=== PATIENT | female | born 1985 | race African-American/Black ===

== ENCOUNTER 2016-10-21 09:35 | Emergency (ER) | payer MEDICARE, OTHER ==
[2016-10-21 10:23] LABS: BILIRUBIN,URINE NEGATIVE (NEG); GLUCOSE,URINE NEGATIVE (NEG); NITRITE,URINE NEGATIVE (NEG); PROTEIN,URINE NEGATIVE (NEG-TRACE); UROBILINOGEN,URINE 0.2 mg/dL (0.2 mg/dL)
[2016-10-21] MEDS ORDERED: ONDANSETRON ODT 4 MG TAB.RAPDIS. PO ONE (10:30)
[2016-10-21] MEDS ORDERED: ACETAMINOPHEN 500 MG TABLET PO ONE (10:30)
--- NOTE | 2016-10-21 10:33 | ED.ADGEN ---
Past Medical History Past Medical History: Hypertension Past Surgical History: No Surgical History Alcohol Use: Occasionally Drug Use: None Adult General Chief Complaint Chief Complaint: ABDOMINAL PAIN HPI HPI Patient is a 30 year old woman, with no significant past no history, who presents to the emergency department with a complaint of nausea, and right upper quadrant pain this morning. Patient was seen by her primary care provider yesterday, she states that she thought she might be at that time, and was experiencing some abdominal cramping. Patient states that her raise test was negative at her doctor's office, she states that her doctor did draw some blood work which is pending at this time. Patient states that she had been dressing her son this morning, when she laid down she expressed a sharp cramping pain and right upper quadrant. Pain is fully resolved at this time. She denies any injuries, any vomiting, any diarrhea, stool last bowel was yesterday and was normal. No back pain, states she has not expressed any urinary complaints, discharge or drainage from the vagina. She states she has intermittent headaches as well about which her doctor is aware. She is currently she still feels slightly nauseous, but she is not experiencing any abdominal pain at this time or other symptoms. No recent travel or surgery, no sick contacts or exposures. Review of Systems Review of Systems Constitutional: Denies fever or chills. [] Eyes: Denies change in visual acuity. [] HENT: Denies nasal congestion or sore throat. [] Respiratory: Denies cough or shortness of breath. [] Cardiovascular: Denies chest pain or edema. [] GI: Right upper quadrant abdominal pain, now resolved, nausea, no vomiting, bloody stools or diarrhea. : Denies dysuria. [] Musculoskeletal: Denies back pain or joint pain. [] Integument: Denies rash. [] Neurologic: Denies headache, focal weakness or sensory changes. [] Endocrine: Denies polyuria or polydipsia. [] Lymphatic: Denies swollen glands. [] Psychiatric: Denies depression or anxiety. [] Current Medications Current Medications Current Medications Medications (Trade) Dose Ordered Sig/Le Start Time Stop Time Status Last Admin Dose Admin Acetaminophen (Tylenol) 1,000 mg 1X ONCE 10/21/16 10:30 10/21/16 10:31 DC 10/21/16 10:28 1,000 MG Ondansetron HCl (Zofran Odt) 4 mg 1X ONCE 10/21/16 10:30 10/21/16 10:31 DC 10/21/16 10:28 4 MG Allergies Allergies Allergies Coded Allergies Type Severity Reaction Last Updated Verified No Known Drug Allergies 10/21/16 No Physical Exam Physical Exam Constitutional: Well developed, well nourished, no acute distress, non-toxic appearance. [] HENT: Normocephalic, atraumatic, bilateral external ears normal, oropharynx moist, no oral exudates, nose normal. [] Eyes: PERRLA, EOMI, conjunctiva normal, no discharge. [] Neck: Normal range of motion, no tenderness, supple, no stridor. [] Cardiovascular:Heart rate regular rhythm, no murmur, S1, S2, no rubs or gallops. [] Lungs & Thorax: Bilateral breath sounds clear to auscultation, no wheezing, rhonchi, rales. No chest or crepitus or tenderness. [] Abdomen: Bowel sounds normal, soft, no tenderness, no rebound, rigidity, no guarding, no masses, no pulsatile masses. [] Skin: Warm, dry, no erythema, no rash. [] Back: No tenderness, no CVA tenderness. [] Extremities: No tenderness, no cyanosis, no clubbing, ROM intact, no edema. Negative Homans sign. [] Neurologic: Alert and oriented X 3, normal motor function, normal sensory function, no focal deficits noted. [] Psychologic: Affect normal, judgement normal, mood normal. [] Current Patient Data Vital Signs Vital Signs Date Time Temp Pulse Resp B/P (MAP) Pulse Ox O2 Delivery O2 Flow Rate FiO2 10/21/16 11:45 90 18 134/100 (111) 100 Room Air 10/21/16 09:57 98.6 98.6 Lab Values Laboratory Tests Test 10/21/16 09:20 10/21/16 10:05 POC Urine HCG, Qualitative Hcg negative (Negative) Urine Collection Type Unknown Urine Color Yellow Urine Clarity Clear Urine pH 7.0 Urine Specific [place] 1.010 Urine Protein Negative mg/dL (NEG-TRACE) Urine Glucose (UA) Negative mg/dL (NEG) Urine Ketones (Stick) Negative mg/dL (NEG) Urine Blood Negative (NEG) Urine Nitrite Negative (NEG) Urine Bilirubin Negative (NEG) Urine Urobilinogen Dipstick 0.2 mg/dL (0.2 mg/dL) Urine Leukocyte Esterase Negative (NEG) Urine RBC 0 /HPF (0-2) Urine WBC 0 /HPF (0-4) Urine Squamous Epithelial Cells Many /LPF Urine Bacteria Few /HPF (0-FEW) Urine Mucus Slight /LPF Urine Test Negative (NEG) EKG EKG Not indicated.[] Radiology/Procedures Radiology/Procedures Not indicated. [] Course & Med Decision Making Course & Med Decision Making Pertinent Labs and Imaging studies reviewed. (See chart for details) Patient states she is experiencing mild nausea at this time, she and significant other bedside asking if patient can experience "feeling like you're when you are not actually ", as the patient seems to be experiencing type symptoms, and she currently has tried can see. Discussed with the patient that this can occur, her urine hCG is negative in the emergency department. Discussed the patient that as she is experiencing no abdominal symptoms currently, that I feel would be remiss to establish an additional workup at this time, as her primary care provider several yesterday for similar complaints, and currently has blood work and evaluation in progress. Patient was given Zofran, urinalysis obtained. On reevaluation, is nausea is resolved after receiving Zofran, patient starting by mouth fluids without issue. Urinalysis is negative for infection. Discussed again with patient that if she develops new concerning symptoms or if symptoms return that would be happy to evaluate her in the emergency department, but at this time as she is asymptomatic and is currently being evaluated by her primary care provider, I would recommend following up with her primary, and forgoing additional evaluation the ED this time. Patient is resting comfortably with family at bedside, is agreeable with this plan. We did discuss concerning symptoms that prompt return to the emergency department. Patient voiced understanding and agreement with recommendations and plan, discharged home with prescription for Zofran with plan as above. Dragon Disclaimer Dragon Disclaimer This electronic medical record was generated, in whole or in part, using a voice recognition dictation system. Departure Impression: Primary Impression: Nausea Disposition: HOME, SELF-CARE Condition: IMPROVED Scripts Ondansetron Hcl (ZOFRAN) 4 Mg Tablet 1 TAB PO Q8HRS, #12 TAB Prov: ROSAS ARIAS DO 10/21/16 ROSAS ARIAS DO Oct 21, 2016 10:33
[2016-10-21 10:38] LABS: NEG OBC UR NEG; POS OBC UR POS
[2016-10-21 10:54] LABS: BACTERIA,URINE FEW /HPF (0-FEW); RBC,URINE 0 /HPF (0-2); SQUAMOUS EPITHELIAL CELL,UR MANY /LPF; WBC,URINE 0 /HPF (0-4)
[2016-10-21 11:45] VITALS: BP 134/100
[2016-10-21] MEDS ORDERED: ONDA4TAB7 PO (12:01)
== END 2016-10-21 12:04 | disposition home or self-care (01) ==
LOC: ER 09:35
DX: R11.0 Nausea (principal); R10.11 Right upper quadrant pain; R51 Headache; I10 Essential (primary) hypertension
CPT/HCPCS: 81001; 81025; 84703; 99284; Q0162

== ENCOUNTER 2017-02-04 18:44 | Emergency (ER) | payer MEDICARE, OTHER ==
[~2017-02-04] VITALS: Ht 160 cm; Wt 95.7 kg
[~2017-02-04 18:44] MED LIST: ONDA4TAB7 PO
[2017-02-04 19:10] VITALS: BP 166/107
--- NOTE | 2017-02-04 19:38 | PHYS DOC ---
Past Medical History Past Medical History: Hypertension Past Surgical History: No Surgical History Alcohol Use: Occasionally Drug Use: None Adult General Chief Complaint Chief Complaint: BACK PAIN OR INJURY HPI HPI Patient is a 31 year old female presents to the emergency department with rest tenderness, fatigue, low back pain. She states that this has been occurring for several months. She feels that she may be . She states she is on the Mirena and does not have regular menstrual cycles. She took a home test that was negative. She has no nausea, no vomiting, no abdominal pain, no neck pain, no fever, no urinary symptoms. She denies vaginal discharge Review of Systems Review of Systems Constitutional: Denies fever or chills, complain of fatigue [] Eyes: Denies change in visual acuity, redness, or eye pain [] HENT: Denies nasal congestion or sore throat [] Respiratory: Denies cough or shortness of breath , complaining of breast tenderness[] Cardiovascular: Denies chest pain, denies lower extremity edema and denies palpitations GI: Denies abdominal pain, nausea, vomiting, bloody stools or diarrhea [] : Denies dysuria or hematuria [] Musculoskeletal: Complaining of low back pain Integument: Denies rash or skin lesions [] Neurologic: Denies headache, focal weakness or sensory changes [] Endocrine: Denies polyuria or polydipsia [] Allergies Allergies Allergies Coded Allergies Type Severity Reaction Last Updated Verified No Known Drug Allergies 10/21/16 No Physical Exam Physical Exam Constitutional: Well developed, well nourished, no acute distress, non-toxic appearance. [] HENT: Normocephalic, atraumatic, bilateral external ears normal, oropharynx moist, no oral exudates, nose normal. [] Eyes: PERRLA, EOMI, conjunctiva normal, no discharge. [] Neck: Normal range of motion, no tenderness, supple, no stridor. [] Cardiovascular:Heart rate regular rhythm, no murmur [] Lungs & Thorax: Bilateral breath sounds clear to auscultation [] Abdomen: Bowel sounds normal, soft, no tenderness, no masses, no pulsatile masses. [] Skin: Warm, dry, no erythema, no rash. [] Back: No tenderness, no CVA tenderness. [] Extremities: No tenderness, no cyanosis, no clubbing, ROM intact, no edema. [] Neurologic: Alert and oriented X 3, normal motor function, normal sensory function, no focal deficits noted. [] Psychologic: Affect normal, judgement normal, mood normal. [] Current Patient Data Vital Signs Vital Signs Date Time Temp Pulse Resp B/P (MAP) Pulse Ox O2 Delivery O2 Flow Rate FiO2 02/04/17 19:10 98.9 78 16 100 Room Air 98.9 Lab Values Laboratory Tests Test 02/04/17 19:32 POC Urine HCG, Qualitative Hcg negative (Negative) EKG EKG [] Radiology/Procedures Radiology/Procedures [] Course & Med Decision Making Course & Med Decision Making Pertinent Labs and Imaging studies reviewed. (See chart for details) [] Dragon Disclaimer Dragon Disclaimer This electronic medical record was generated, in whole or in part, using a voice recognition dictation system. Departure Departure Impression: Primary Impression: Amenorrhea, unspecified Additional Impression: Back pain Referrals: ALEAH DILLON MD (PCP) Patient Instructions: Back Pain, Adult Additional Instructions: Follow-up with your primary care provider for your chronic discomfort and lack of menstrual cycle. You may use [id number] ibuprofen as labeled and is indicated for symptom management. Problem Qualifiers Additional Impression: Back pain Back pain location: low back pain Chronicity: chronic Back pain laterality : bilateral Sciatica presence: without sciatica Qualified Codes: M54.5 - Low back pain; G89.29 - Other chronic pain AGUSTINA THAKKAR APRN Feb 04, 2017 19:38
== END 2017-02-04 20:14 | disposition home or self-care (01) ==
LOC: ER 18:44
DX: N91.2 Amenorrhea, unspecified (principal); M54.5 Low back pain; I10 Essential (primary) hypertension; G89.29 Other chronic pain
CPT/HCPCS: 81025; 99282

== ENCOUNTER 2017-06-07 04:41 | Emergency (ER) | payer MEDICARE, OTHER ==
[2017-06-07 05:05] LABS: URINE HCG POC HCG NEGATIVE (Negative)
[2017-06-07] MEDS: ONDANSETRON ODT 4 MG TAB.RAPDIS. PO ×2 (05:30)
[2017-06-07 06:04] LABS: AGAP ISTAT 21 mmol/L (6-14); BUN ISTAT 10 mg/dL (8-26); CHLORIDE ISTAT 97 mmol/L (98-110); CREATININE ISTAT 0.8 mg/dL (0.5-1.4); GLUCOSE ISTAT 99 mg/dL (70-99); HEMATOCRIT ISTAT 41 % (36-40); HEMOGLOBIN ISTAT 13.9 g/dL (12-15); ION CA ISTAT 1.04 mmol/L (1.13-1.32); POTASSIUM ISTAT 3.3 mmol/L (3.5-5.0); SODIUM ISTAT 142 mmol/L (135-145); TOT CO2 ISTAT 28 mmol/L (23-32)
== END 2017-06-07 06:20 | disposition home or self-care (01) ==
LOC: ER 04:41
DX: R11.2 Nausea with vomiting, unspecified (principal); E87.6 Hypokalemia; R19.7 Diarrhea, unspecified; I10 Essential (primary) hypertension; K21.9 Gastro-esophageal reflux disease without esophagitis
CPT/HCPCS: 36415; 80047; 81025; 85014; 85018; 99283; Q0162

== ENCOUNTER → 2017-08-03 | Outpatient (CLI) | payer MEDICARE, OTHER | END | disposition home or self-care (01) | LOC: US 15:36 | DX: N83.202 Unspecified ovarian cyst, left side (principal); I10 Essential (primary) hypertension; E87.6 Hypokalemia | CPT/HCPCS: 76830; 76856 ==

== ENCOUNTER 2018-01-21 16:04 | Emergency (ER) | payer MEDICARE, OTHER ==
[~2018-01-21] VITALS: Ht 160 cm; Wt 94.3 kg
[~2018-01-21 16:04] MED LIST changes: +LOPE2CAP88 PO
--- NOTE | 2018-01-21 16:15 | PHYS DOC ---
Past Medical History Past Medical History: Hypertension Additional Past Medical Histor: Acid Reflux Past Surgical History: Cholecystectomy, Additional Information: 2 PKS/DAY Alcohol Use: None Drug Use: None Adult General Chief Complaint Chief Complaint: ABDOMINAL PAIN HPI HPI Patient is a 32 year old female with history of hypertension who presents today complaining of moderate sharp right upper quadrant abdominal pain radiating to her flank that began 3 days ago. Patient states the pain comes and goes. Patient states the pain occasionally makes her nauseated. Denies any fever. Denies any chance she is . Denies any urgency but states she has some urinary frequency. Denies any concerns for STDs. Review of Systems Review of Systems Constitutional: Denies fever or chills [] Eyes: Denies change in visual acuity, redness, or eye pain [] HENT: Denies nasal congestion or sore throat [] Respiratory: Denies cough or shortness of breath [] Cardiovascular: No additional information not addressed in HPI [] GI: Reports right upper quadrant abdominal pain, reports nausea, denies vomiting , bloody stools or diarrhea [] : Reports right flank pain. Denies dysuria or hematuria [] Musculoskeletal: Denies back pain or joint pain [] Integument: Denies rash or skin lesions [] Neurologic: Denies headache, focal weakness or sensory changes [] All other systems were reviewed and found to be within normal limits, except as documented in this note. Current Medications Current Medications Current Medications Medications (Trade) Dose Ordered Sig/Le Start Time Stop Time Status Last Admin Dose Admin Ceftriaxone Sodium 50 ml @ 100 mls/hr 1X ONCE 01/21/18 17:00 01/21/18 17:29 DC 01/21/18 16:59 100 MLS/HR Clonidine HCl (Catapres) 0.1 mg 1X ONCE 01/21/18 16:30 01/21/18 16:31 DC Famotidine (Pepcid Vial) 20 mg 1X ONCE 01/21/18 16:30 01/21/18 16:31 DC 01/21/18 16:33 20 MG Morphine Sulfate (Morphine Sulfate) 5 mg 1X ONCE 01/21/18 16:30 01/21/18 16:31 DC 01/21/18 16:33 5 MG Ondansetron HCl (Zofran) 4 mg 1X ONCE 01/21/18 16:30 01/21/18 16:31 DC 01/21/18 16:33 4 MG Potassium Chloride (Klor-Con) 40 meq 1X ONCE 01/21/18 17:00 01/21/18 17:01 DC 01/21/18 16:58 40 MEQ Sodium Chloride 1,000 ml @ 1,000 mls/hr 1X ONCE 01/21/18 16:30 01/21/18 17:29 DC 01/21/18 16:34 1,000 MLS/HR Allergies Allergies Allergies Coded Allergies Type Severity Reaction Last Updated Verified No Known Drug Allergies 10/21/16 No Physical Exam Physical Exam Constitutional: Well developed, well nourished, no acute distress, non-toxic appearance. [] HENT: Normocephalic, atraumatic, bilateral external ears normal, oropharynx moist, no oral exudates, nose normal. [] Eyes: PERRLA, EOMI, conjunctiva normal, no discharge. [] Neck: Normal range of motion, no tenderness, supple, no stridor. [] Cardiovascular:Heart rate regular rhythm, no murmur [] Lungs & Thorax: Bilateral breath sounds clear to auscultation [] Abdomen: Old healed surgical incisions noted on the right upper quadrant consistent with laparotomy cholecystectomy. Bowel sounds normal, soft, slight RUQ tenderness, no masses, no pulsatile masses. No right lower quadrant tenderness. Negative Perrin sign, negative obturator sign, negative Rovsing sign. Skin: Warm, dry, no erythema, no rash. [] Back: No tenderness, slight right CVA tenderness. [] Extremities: No tenderness, no cyanosis, no clubbing, ROM intact, no edema. [] Neurologic: Alert and oriented X 3, normal motor function, normal sensory function, no focal deficits noted. [] Psychologic: Affect normal, judgement normal, mood normal. [] Current Patient Data Vital Signs Vital Signs Date Time Temp Pulse Resp B/P (MAP) Pulse Ox O2 Delivery O2 Flow Rate FiO2 01/21/18 17:50 78 18 132/78 (96) 99 Room Air 01/21/18 16:05 98.0 98.0 Lab Values Laboratory Tests Test 01/21/18 16:15 01/21/18 16:20 01/21/18 16:25 White Blood Count 8.0 x10^3/uL (4.0-11.0) Red Blood Count 5.10 x10^6/uL (3.50-5.40) Hemoglobin 15.2 g/dL (12.0-15.5) Hematocrit 43.6 % (36.0-47.0) Mean Corpuscular Volume 86 fL (79-100) Mean Corpuscular Hemoglobin 30 pg (25-35) Mean Corpuscular Hemoglobin Concent 35 g/dL (31-37) Red Cell Distribution Width 14.0 % (11.5-14.5) Platelet Count 298 x10^3/uL (140-400) Neutrophils (%) (Auto) 64 % (31-73) Lymphocytes (%) (Auto) 30 % (24-48) Monocytes (%) (Auto) 5 % (0-9) Eosinophils (%) (Auto) 1 % (0-3) Basophils (%) (Auto) 1 % (0-3) Neutrophils # (Auto) 5.1 x10^3uL (1.8-7.7) Lymphocytes # (Auto) 2.4 x10^3/uL (1.0-4.8) Monocytes # (Auto) 0.4 x10^3/uL (0.0-1.1) Eosinophils # (Auto) 0.1 x10^3/uL (0.0-0.7) Basophils # (Auto) 0.1 x10^3/uL (0.0-0.2) Sodium Level 141 mmol/L (136-145) Potassium Level 3.0 mmol/L (3.5-5.1) L Chloride Level 100 mmol/L (98-107) Carbon Dioxide Level 29 mmol/L (21-32) Anion Gap 12 (6-14) Blood Urea Nitrogen 11 mg/dL (7-20) Creatinine 1.1 mg/dL (0.6-1.0) H Estimated GFR (Cockcroft-Gault) 69.2 BUN/Creatinine Ratio 10 (6-20) Glucose Level 94 mg/dL (70-99) Calcium Level 9.8 mg/dL (8.5-10.1) Total Bilirubin 0.8 mg/dL (0.2-1.0) Aspartate Amino Transferase (AST) 31 U/L (15-37) Alanine Aminotransferase (ALT) 69 U/L (14-59) H Alkaline Phosphatase 129 U/L (46-116) H Total Protein 9.1 g/dL (6.4-8.2) H Albumin 4.0 g/dL (3.4-5.0) Albumin/Globulin Ratio 0.8 (1.0-1.7) L Lipase 200 U/L (73-393) Ethyl Alcohol Level < 10 mg/dL (0-10) Urine Collection Type Unknown Urine Color Yellow Urine Clarity Hazy Urine pH 7.0 Urine Specific [place] 1.020 Urine Protein >=300 mg/dL (NEG-TRACE) Urine Glucose (UA) Negative mg/dL (NEG) Urine Ketones (Stick) Negative mg/dL (NEG) Urine Blood Moderate (NEG) Urine Nitrite Positive (NEG) Urine Bilirubin Negative (NEG) Urine Urobilinogen Dipstick 0.2 mg/dL (0.2 mg/dL) Urine Leukocyte Esterase Moderate (NEG) Urine RBC 3-5 /HPF (0-2) Urine WBC 20-40 /HPF (0-4) Urine Squamous Epithelial Cells Mod /LPF Urine Bacteria Many /HPF (0-FEW) Urine Mucus Mod /LPF Urine Opiates Screen Neg (NEG) Urine Methadone Screen Neg (NEG) Urine Barbiturates Neg (NEG) Urine Phencyclidine Screen Neg (NEG) Urine Amphetamine/Methamphetamine Neg (NEG) Urine Benzodiazepines Screen Neg (NEG) Urine Cocaine Screen Neg (NEG) Urine Cannabinoids Screen Neg (NEG) Urine Ethyl Alcohol Neg (NEG) POC Urine HCG, Qualitative Hcg negative (Negative) Laboratory Tests 01/21/18 16:15 Laboratory Tests 01/21/18 16:15 EKG EKG [] Radiology/Procedures Radiology/Procedures [] Course & Med Decision Making Course & Med Decision Making Pertinent Labs and Imaging studies reviewed. (See chart for details) This is a 32-year-old female presenting to the ED today with right upper quadrant abdominal pain radiating to her flank region with the urinary frequency. Urine noted for nitrates and moderate leukocytes though urine appears contaminated considering her symptoms we will treat for UTI. Patient was given Rocephin in the ED. Discharged with cephalexin. CBC is normal, CMP with potassium of 3.0, patient was given oral potassium replacement. AST 31, ALT 69, ALK 129-history of cholecystectomy. Patient was instructed to push fluids. Follow-up with PCP in one week. Instructed to return to the ED at any point symptoms worsen. Encouraged to increase dietary potassium intake including foods like bananas. Her blood pressure was 168/100 on arrival to the ED. She has history of hypertension. Unknown if she is on medications. Blood pressure was rechecked later, it did come down to 140s/90s. Patient encouraged to follow-up with the PCP to make sure she is on blood pressure medications. Staff Physician Addendum: I was working in the ER during the course of this patient's visit. I was available for consultation as needed, but I was not directly involved in the care of this patient. Dragon Disclaimer Dragon Disclaimer This electronic medical record was generated, in whole or in part, using a voice recognition dictation system. Departure Departure Impression: Primary Impression: Urinary tract infection Additional Impressions: Hypokalemia Hypertension Disposition: 01 HOME, SELF-CARE Condition: STABLE Referrals: ALEX GRIMES [employer] ENGINEER (PCP) Follow-up in one week Patient Instructions: Hypertension, Hypokalemia-Brief, Urinary Tract Infection Additional Instructions: You were evaluated in the emergency room and noted to have urinary tract infection, we put you on antibiotics, ensure you complete them. Your potassium was slightly low. Increase your dietary potassium intake through foods like bananas. Take the prescribed medications as ordered ensuring you complete your oral antibiotics. Push fluids. Follow-up with your doctor in 1-2 weeks. Come back to the ED at any point symptoms worsen. Scripts Tramadol Hcl (ULTRAM) 50 Mg Tablet 50 MG PO Q6HRS PRN for PAIN, #30 TAB 0 Refills Prov: MALIK AMADOR APRN 01/21/18 Ondansetron (ZOFRAN ODT) 4 Mg Tab.rapdis 1 TAB SL Q8HRS, #15 TAB Prov: MALIK AMADOR APRN 01/21/18 Cephalexin (CEPHALEXIN) 500 Mg Tablet 1 TAB PO BID, #14 TAB Prov: MALIK AMADOR APRN 01/21/18 Problem Qualifiers Primary Impression: Urinary tract infection Urinary tract infection type: site unspecified Hematuria presence: without hematuria Qualified Codes: N39.0 - Urinary tract infection, site not specified Additional Impressions: Hypertension Hypertension type: unspecified Qualified Codes: I10 - Essential (primary) hypertension MALKI AMADOR APRN Jan 21, 2018 16:15 PATRICIA ALMENDAREZ MD Jan 22, 2018 12:30
[2018-01-21 16:23] LABS: BASO # 0.1 x10^3/uL (0.0-0.2); BASO % 1 % (0-3); EOS # 0.1 x10^3/uL (0.0-0.7); EOS % 1 % (0-3); HEMATOCRIT 43.6 % (36.0-47.0); HEMOGLOBIN 15.2 g/dL (12.0-15.5); LYMPH # 2.4 x10^3/uL (1.0-4.8); LYMPH % 30 % (24-48); MEAN CORPUSCULAR HEMOGLOBIN 30 pg (25-35); MEAN CORPUSCULAR HGB CONC 35 g/dL (31-37); MEAN CORPUSCULAR VOLUME 86 fL (79-100); MONO # 0.4 x10^3/uL (0.0-1.1); MONO % 5 % (0-9); NEUT # 5.1 x10^3uL (1.8-7.7); NEUT % 64 % (31-73); PLATELET COUNT 298 x10^3/uL (140-400)
[2018-01-21] MEDS ORDERED: MORPHINE SULFATE 10 MG/ML VIAL. IV ONE (16:30)
[2018-01-21] MEDS ORDERED: ONDANSETRON PF 4 MG/2 ML VIAL. IV ONE (16:30)
[2018-01-21] MEDS ORDERED: cloNIDine HCL 0.1 MG TABLET PO ONE (16:30)
[2018-01-21] MEDS ORDERED: IV NORMAL SALINE 1000ML BAG 1,000 ML IV ONE (16:30)
[2018-01-21] MEDS ORDERED: FAMOTIDINE 20 MG/2 ML VIAL IVP ONE (16:30)
[2018-01-21 16:38] LABS: BILIRUBIN,URINE NEGATIVE (NEG); COLOR,URINE YELLOW; NITRITE,URINE POSITIVE (NEG); PROTEIN,URINE >=300 mg/dL (NEG-TRACE); UROBILINOGEN,URINE 0.2 mg/dL (0.2 mg/dL)
[2018-01-21 16:42] LABS: CLARITY,URINE HAZY
[2018-01-21 16:42] LABS: ALBUMIN/GLOBULIN RATIO 0.8 (1.0-1.7); CALCIUM 9.8 mg/dL (8.5-10.1); CREATININE 1.1 mg/dL (0.6-1.0); GFR 69.2; TOTAL BILIRUBIN 0.8 mg/dL (0.2-1.0); TOTAL PROTEIN 9.1 g/dL (6.4-8.2)
[2018-01-21 16:43] LABS: BARBITURATES NEG (NEG); BENZODIAZEPINES NEG (NEG); CANNABINOIDS NEG (NEG); COCAINE NEG (NEG); METHADONE NEG (NEG); OPIATES NEG (NEG); PHENCYCLIDINE NEG (NEG)
[2018-01-21 16:46] LABS: AMPHETAMINE/METHAMPHETAMINE NEG (NEG); BACTERIA,URINE MANY /HPF (0-FEW); SQUAMOUS EPITHELIAL CELL,UR MOD /LPF; WBC,URINE 20-40 /HPF (0-4)
[2018-01-21] MEDS ORDERED: TRAM-48 PO (16:59)
[2018-01-21] MEDS ORDERED: ONDA4TAB10 SL (16:59)
[2018-01-21] MEDS ORDERED: CEPH500T PO (16:59)
[2018-01-21] MEDS ORDERED: POTASSIUM CHLORIDE 20 MEQ TABLET.ER. PO ONE (17:00)
[2018-01-21 17:50] VITALS: BP 132/78
== END 2018-01-21 17:52 | disposition home or self-care (01) ==
LOC: ER 16:04
DX: N39.0 Urinary tract infection, site not specified (principal); E87.6 Hypokalemia; I10 Essential (primary) hypertension; F17.210 Nicotine dependence, cigarettes, uncomplicated; Z90.49 Acquired absence of other specified parts of digestive tract; Z98.890 Other specified postprocedural states
CPT/HCPCS: 36415; 80053; 80307; 81001; 81025; 83690; 85025; 87086; 96365; 96375; 99285; G0480; J0690; J2270; J2405; J7030; S0028; G0479

== ENCOUNTER → 2018-02-06 | Outpatient (CLI) | payer MEDICARE, OTHER ==
[2018-01-21 17:50] VITALS: BP 132/78
[~2018-02-06] MED LIST changes: +CEPH500T PO; +ONDA4TAB10 SL; +TRAM-48 PO
--- NOTE | 2018-02-06 07:47 | RAD ---
Renal ultrasound, 02/06/2018: HISTORY: Right flank pain The right kidney measures 12.2 cm in length while the left kidney measures 11.6 cm. There is no evidence of hydronephrosis or a renal mass. The renal parenchymal echogenicity is within normal limits. Limited views of urinary bladder show no abnormality. IMPRESSION: No significant abnormality is detected. Electronically signed by: Pranav Ramirez MD (02/06/2018 7:44 AM) [facility]
== END | disposition home or self-care (01) ==
LOC: US 06:09
PROVIDERS: ATTEND Family Medicine
DX: R10.84 Generalized abdominal pain (principal)
CPT/HCPCS: 76770

== ENCOUNTER → 2018-05-11 | Outpatient (CLI) | payer MEDICARE, OTHER ==
--- NOTE | 2018-05-11 16:16 | RAD ---
Pelvic ultrasound 05/11/2018 INDICATION: Umbilical pain. COMPARISON STUDY: Pelvic ultrasound: August 03, 2017. Discussion: Ultrasound evaluation of the pelvis was performed transabdominally. Static images are submitted to PACS. The uterus measures 10.6 x 3.5 x 5.0 cm. Intrauterine device is seen in place of partially obscured the endometrium. No definitive surrounding fluid is seen. No focal uterine lesions are identified. The right ovary measures 3.4 x 2.0 x 2.6 cm. The left ovary measures 3.5 x 1.5 x 3.5 cm. Blood flow the ovaries is seen bilaterally. No significant free fluid is seen in the pelvis. IMPRESSION: Unremarkable transabdominal pelvic ultrasound. Intrauterine device in place. Electronically signed by: Kaleb Olivia MD (05/11/2018 4:12 PM) [facility] [place] [id number]
== END | disposition home or self-care (01) ==
LOC: US 15:30
PROVIDERS: ATTEND Obstetrics & Gynecology
DX: R10.84 Generalized abdominal pain (principal)
CPT/HCPCS: 76856

== ENCOUNTER → 2018-05-30 | Outpatient (CLI) | payer MEDICARE, OTHER ==
[~2018-05-30] MED LIST changes: +CONTRAST GIVEN. MC PRN; +IOHEXOL 240 MG/ML 50ML VIAL. PO ONE; +IOHEXOL 300 MG/ML 100ML VIAL. IV ONE
--- NOTE | 2018-05-30 18:35 | RAD ---
PQRS Compliance statement: One or more of the following individualized dose reduction techniques were utilized for this examination: 1. Automated exposure control. 2. Adjustment of the mA and/or kV according to patient size. 3. Use of iterative reconstruction technique. Indication:ACUTE ABD PAIN X 3 WEEKS PO CONTRAST ONLY-UNABLE TO GAIN IV ACCESS NO PREV TECHNIQUE: CT abdomen and pelvis without IV contrast with multiplanar reformats. COMPARISON: None FINDINGS: Limited evaluation of solid abdominal and pelvic organs due to lack of IV contrast. Are clear lung bases. Noncontrast appearance of the liver, spleen, pancreas, adrenals within normal limits. Status post cholecystectomy. No nephrolithiasis or hydronephrosis. No free pelvic fluid or ascites. Shotty mesenteric lymph nodes are seen with surrounding haziness of the mesenteric fat. No enlarged retroperitoneal or pelvic adenopathy. No bowel obstruction. Normal appendix. Anteverted uterus with IUD. Urinary bladder demonstrates no radiopaque stone. No pneumoperitoneum. No suspicious bony lesion. IMPRESSION: Limited evaluation of solid abdominal and pelvic organs due to lack of IV contrast. 1. Prominent mesenteric lymph nodes with surrounding haziness may be secondary to mesenteric adenitis. Electronically signed by: Celestine Bucio DO (05/30/2018 6:31 PM) [facility]
== END | disposition home or self-care (01) ==
LOC: CT 15:53
PROVIDERS: ATTEND Family Medicine
DX: R10.0 Acute abdomen (principal); Z97.5 Presence of (intrauterine) contraceptive device
CPT/HCPCS: 74176

== ENCOUNTER → 2018-06-13 | Outpatient (CLI) | payer MEDICARE, OTHER ==
[2018-06-08 16:53] VITALS: BP 151/105
[~2018-06-13] MED LIST changes: -CONTRAST GIVEN. MC PRN; -IOHEXOL 240 MG/ML 50ML VIAL. PO ONE; -IOHEXOL 300 MG/ML 100ML VIAL. IV ONE
--- NOTE | 2018-06-13 10:07 | RAD ---
DATE: 06/13/2018 EXAM: DIGITAL DIAGNOSTIC BILATERAL HISTORY: Bilateral breast pain COMPARISON: Baseline study This study was interpreted with the benefit of Computerized Aided Detection (CAD). Breast Density: HETERO The breast parenchyma is heterogenously dense, which could reduce sensitivity of mammography. Breast parenchyma level C. FINDINGS: A tiny smooth lymph node type density is projected over the posterolateral aspect of the right breast. No suspicious breast densities are seen. No microcalcifications are evident. Benign-appearing lymph node type densities are projected over the left axilla. IMPRESSION: There is no mammographic evidence of malignancy in either breast. Clinical surveillance is suggested. BI-RADS CATEGORY: 2 BENIGN FINDING(S) RECOMMENDED FOLLOW-UP: CLIN FOLLOW UP IMAGING CLINICALLY INDICATED PQRS compliance statement: Patient information was entered into a reminder system with a target due date for the next mammogram. Mammography is a sensitive method for finding small breast cancers, but it does not detect them all and is not a substitute for careful clinical examination. A negative mammogram does not negate a clinically suspicious finding and should not result in delay in biopsying a clinically suspicious abnormality. "Our facility is accredited by the [employer] Mammography Program."
== END | disposition home or self-care (01) ==
LOC: MAMMO 09:35
PROVIDERS: ATTEND Obstetrics & Gynecology
DX: N64.4 Mastodynia (principal)
CPT/HCPCS: 77066

== ENCOUNTER → 2018-07-06 | Outpatient (CLI) | payer MEDICARE, OTHER ==
[2018-06-08 16:53] VITALS: BP 151/105
[~2018-07-06] MED LIST changes: +BARIUM SULFATE 60% 355 ML SUSP PO ONE
--- NOTE | 2018-07-06 10:22 | RAD ---
Small bowel series, 2018: HISTORY: Lower abdominal pain, constipation The preliminary abdominal image demonstrates an IUD projected over the mid pelvis. There are surgical clips in the right upper quadrant compatible with a prior cholecystectomy. There is a moderate amount stool in the colon. The abdominal gas pattern is otherwise unremarkable. Serial abdominal images were obtained following oral ingestion of liquid barium. 5 fluoroscopic spot images were also recorded. 0.9 minutes of fluoroscopy time was utilized. The small bowel loops are of normal caliber with no evidence of thickening of their folds. The contrast reached the colon at 90 minutes. The terminal ileum was well visualized and shows no abnormality. IMPRESSION: No significant small bowel abnormality is detected. Electronically signed by: Pranav Ramirez MD (07/06/2018 10:19 AM) [facility]
== END | disposition home or self-care (01) ==
LOC: RAD 10:00
PROVIDERS: ATTEND Internal Medicine Gastroenterology
DX: K59.00 Constipation, unspecified (principal); Z90.49 Acquired absence of other specified parts of digestive tract
CPT/HCPCS: 74250

== ENCOUNTER → 2018-09-12 | Outpatient (CLI) | payer MEDICARE, OTHER ==
[2018-06-08 16:53] VITALS: BP 151/105
[~2018-09-12] MED LIST changes: -BARIUM SULFATE 60% 355 ML SUSP PO ONE
--- NOTE | 2018-09-12 09:44 | RAD ---
DATE: 09/12/2018 EXAM: MAMMO STEPHANIE DIAG RT, BREAST RIGHT HISTORY: Right breast lump COMPARISON: 06/13/2018 This study was interpreted with the benefit of Computerized Aided Detection (CAD). Breast Density: HETERO The breast parenchyma is heterogenously dense, which could reduce sensitivity of mammography. Breast parenchyma level C. FINDINGS: 2-D and 3-D tomosynthesis imaging was performed in CC and MLO projections. The area of reported clinical concern was in the upper inner right breast, although the patient could not currently pinpoint a lump. No new or enlarging breast densities are seen. There is an unchanged small benign-appearing lymph node type density in the posterolateral aspect of the right breast. No spiculated mass or architectural distortion is evident. No suspicious microcalcifications are seen. Right breast ultrasound, 09/12/2018: A targeted ultrasound exam of the upper inner quadrant of the right breast was performed. Normal heterogeneous fibroglandular shadows are evident no solid mass or unusual fluid collection is seen. IMPRESSION: 1. Stable right mammograms without evidence of malignancy. 2. The targeted ultrasound exam of the right breast reveals no abnormality. 3. Clinical surveillance is suggested. BI-RADS CATEGORY: 1 NEGATIVE RECOMMENDED FOLLOW-UP: CLIN FOLLOW UP IMAGING CLINICALLY INDICATED PQRS compliance statement: Patient information was entered into a reminder system with a target due date for the next mammogram. Mammography is a sensitive method for finding small breast cancers, but it does not detect them all and is not a substitute for careful clinical examination. A negative mammogram does not negate a clinically suspicious finding and should not result in delay in biopsying a clinically suspicious abnormality. "Our facility is accredited by the [employer] Mammography Program."
== END | disposition home or self-care (01) ==
LOC: US 07:48
PROVIDERS: ATTEND Family Medicine
DX: N63.10 Unspecified lump in the right breast, unspecified quadrant (principal)
CPT/HCPCS: 76641; 77065; G0279; 77061

== ENCOUNTER 2018-10-02 19:41 | Emergency (ER) | payer MEDICARE, OTHER ==
[~2018-10-02] VITALS: Ht 160 cm; Wt 93.0 kg
[2018-10-02 19:42] VITALS: BP 195/127
--- NOTE | 2018-10-02 21:04 | PHYS DOC ---
Past Medical History Past Medical History: Depression, Hypertension Additional Past Medical Histor: Acid Reflux Past Surgical History: Alcohol Use: None Drug Use: None Adult General Chief Complaint Chief Complaint: OTHER COMPLAINTS HPI HPI 32-year-old female presents to ER for request of to piercing removals 1 from left upper ear cartilage and one from left side nare. Patient is also requesting test although she has an IUD and does not have monthly cycles she feels like she could be having symptoms which include intermittent weight gain weight loss, intermittent nausea, and intermittent lower abdominal cramping. Patient is denying any symptoms currently. She reports she has taken multiple tests at home all of been negative. Patient denies urinary or vaginal symptoms. Review of Systems Review of Systems Constitutional: Denies fever or chills [] HENT: Reports nose pain at site of lt side piercing. Reports lt upper ear cartilage pain at piercing site GI: Denies vomiting. Reports intermittent lower abd cramping/nausea- denies sxs currently : Denies dysuria or hematuria. Denies vaginal sxs Musculoskeletal: Denies joint pain [] Integument: Denies rash or skin lesions [] Neurologic: Denies headache, focal weakness or sensory changes [] All other systems were reviewed and found to be within normal limits, except as documented in this note. Allergies Allergies Allergies Coded Allergies Type Severity Reaction Last Updated Verified No Known Drug Allergies 10/21/16 No Physical Exam Physical Exam Constitutional: Well developed, well nourished, no acute distress, non-toxic appearance. [] HENT: Normocephalic, atraumatic, bilateral ears normal- patient has multiple piercing sites to upper ear cartilage in bilateral ears. Patient has piercing to left upper cartilage which she has been unable to remove. Site is tender on palpation with swelling around piercing. No erythema or purulence. Oropharynx moist. Left side near piercing with swelling at site tender on palpation. No purulence or erythema. Bilateral nares are patent. No orbital swelling Eyes: Pupils equal, conjunctiva normal, no discharge. [] Neck: Normal range of motion, supple Cardiovascular:Heart rate regular Lungs & Thorax: Resp. equal/nonlabored Abdomen: Bowel sounds normal, soft, no tenderness/distention Skin: Warm, dry, no erythema, no rash. [] Back: No tenderness, no CVA tenderness. [] Extremities: ROM intact, no edema. [] Neurologic: Alert and oriented X 3, normal motor function, normal sensory function, no focal deficits noted. [] Psychologic: Affect normal, judgement normal, mood normal. [] Current Patient Data Vital Signs Vital Signs Date Time Temp Pulse Resp B/P (MAP) Pulse Ox O2 Delivery O2 Flow Rate FiO2 10/02/18 19:42 98.8 68 16 195/127 (149) 100 Room Air 98.8 Lab Values Laboratory Tests Test 10/02/18 21:08 POC Urine HCG, Qualitative Hcg negative (Negative) EKG EKG [] Radiology/Procedures Radiology/Procedures [] Course & Med Decision Making Course & Med Decision Making Pertinent Labs reviewed. (See chart for details) Patient presented to the ER with requests of assistance with removing piercings from left upper ear cartilage and left side near. Patient had both of those piercings easily removed had small amount of bleeding at sites patient tolerated well. Discussed leaving piercings out of those sites. Patient requested test although she has an IUD in place. UCG was negative and this was discussed with patient. Patient had denied any abdominal pain or nausea while in the ER. Home wound care was discussed for piercing sites. Education provided on signs and symptoms to return to ER. Discharge instructions were discussed. Patient to follow-up with primary care physician if symptoms persist or with any concerns. Dragon Disclaimer Dragon Disclaimer This electronic medical record was generated, in whole or in part, using a voice recognition dictation system. Departure Departure Impression: Primary Impression: Piercing Additional Impressions: Encounter for test Complication of left ear piercing Disposition: HOME, SELF-CARE Condition: STABLE Referrals: SUKHWINDER MORALEZ MD (PCP) Patient Instructions: Piercing Infection Additional Instructions: You were evaluated in the emergency department for removal of your pew seems from her left ear and left side of your nose. The sites do not currently infected- you are being provided with information on receiving infections for signs and symptoms to monitor for which she would need to seek medical attention for. Keep the areas clean and if signs of infection appear follow-up with your primary care physician for reevaluation. Problem Qualifiers WANDA SPANGLER APRN Oct 02, 2018 21:04
== END 2018-10-02 21:52 | disposition home or self-care (01) ==
LOC: ER 19:41
DX: H95.89 Other postprocedural complications and disorders of the ear and mastoid process, not elsewhere classified (principal); Z32.02 Encounter for pregnancy test, result negative; I10 Essential (primary) hypertension; K21.9 Gastro-esophageal reflux disease without esophagitis; Y84.8 Other medical procedures as the cause of abnormal reaction of the patient, or of later complication, without mention of misadventure at the time of the procedure
CPT/HCPCS: 81025; 99284

== ENCOUNTER 2019-01-09 16:38 | Emergency (ER) | payer MEDICARE, OTHER ==
[~2019-01-09] VITALS: Ht 160 cm; Wt 91.3 kg
[~2019-01-09 16:38] MED LIST changes: +LOPE-101 PO; -LOPE2CAP88 PO
[2019-01-09 18:07] LABS: BILIRUBIN,URINE NEGATIVE (NEG); CLARITY,URINE CLEAR; COLOR,URINE YELLOW; NITRITE,URINE NEGATIVE (NEG); PROTEIN,URINE NEGATIVE (NEG-TRACE); UROBILINOGEN,URINE 0.2 mg/dL (0.2 mg/dL)
[2019-01-09 18:16] LABS: BACTERIA,URINE FEW /HPF (0-FEW); RBC,URINE 0 /HPF (0-2); SQUAMOUS EPITHELIAL CELL,UR MANY /LPF; WBC,URINE 0 /HPF (0-4)
[2019-01-09 19:00] VITALS: BP 124/83
--- NOTE | 2019-01-09 19:13 | PHYS DOC ---
Past Medical History Past Medical History: Depression, Hypertension Additional Past Medical Histor: Acid Reflux Past Surgical History: Alcohol Use: None Drug Use: None Adult General Chief Complaint Chief Complaint: ABDOMINAL PAIN HPI HPI Patient is a 33 year old female who presents to the ED today with multiple complaints. Patient states for the last 1 month she is felt she is . She states a boom something sore as well as her abdomen felt like she is . She states she's done multiple tests which have been negative. She states she has an IUD and typically does not have menstrual cycles. She's had the IUD for 3 years. She states she is under the custody of another adult and is not allowed to remove her IUD, she states she's been trying to get with the IUD in place. She believes she could be right now. She is also complaining of high blood pressure, she states she follows up with Dr. Roca and he has her on 3 different medications. Review of Systems Review of Systems Constitutional: Denies fever or chills [] Eyes: Denies change in visual acuity, redness, or eye pain [] HENT: Denies nasal congestion or sore throat [] Respiratory: Denies cough or shortness of breath [] Cardiovascular: Reports high blood pressure. No additional information not addressed in HPI [] GI: Reports sensation she could be . Denies abdominal pain, nausea, vomiting, bloody stools or diarrhea [] : Denies dysuria or hematuria [] Musculoskeletal: Denies back pain or joint pain [] Integument: Denies rash or skin lesions [] Neurologic: Denies headache, focal weakness or sensory changes [] All other systems were reviewed and found to be within normal limits, except as documented in this note. Allergies Allergies Allergies Coded Allergies Type Severity Reaction Last Updated Verified No Known Drug Allergies 10/21/16 No Physical Exam Physical Exam Constitutional: Well developed, well nourished, no acute distress, non-toxic appearance. [] HENT: Normocephalic, atraumatic, bilateral external ears normal, oropharynx moist, no oral exudates, nose normal. [] Eyes: PERRLA, EOMI, conjunctiva normal, no discharge. [] Neck: Normal range of motion, no tenderness, supple, no stridor. [] Cardiovascular:Heart rate regular rhythm, no murmur [] Lungs & Thorax: Bilateral breath sounds clear to auscultation [] Abdomen: Bowel sounds normal, soft, no tenderness, no masses, no pulsatile masses. [] Skin: Warm, dry, no erythema, no rash. [] Back: No tenderness, no CVA tenderness. [] Extremities: No tenderness, no cyanosis, no clubbing, ROM intact, no edema. [] Neurologic: Alert and oriented X 3, normal motor function, normal sensory function, no focal deficits noted. [] Psychologic: Affect normal, judgement normal, mood normal. [] Current Patient Data Vital Signs Vital Signs Date Time Temp Pulse Resp B/P (MAP) Pulse Ox O2 Delivery O2 Flow Rate FiO2 01/09/19 17:15 99.1 66 18 123/76 (92) 100 Room Air 99.1 Lab Values Laboratory Tests Test 01/09/19 17:32 01/09/19 17:38 01/09/19 18:11 Urine Collection Type Void Urine Color Yellow Urine Clarity Clear Urine pH 7.0 Urine Specific [place] 1.015 Urine Protein Negative mg/dL (NEG-TRACE) Urine Glucose (UA) Negative mg/dL (NEG) Urine Ketones (Stick) Negative mg/dL (NEG) Urine Blood Negative (NEG) Urine Nitrite Negative (NEG) Urine Bilirubin Negative (NEG) Urine Urobilinogen Dipstick 0.2 mg/dL (0.2 mg/dL) Urine Leukocyte Esterase Negative (NEG) Urine RBC 0 /HPF (0-2) Urine WBC 0 /HPF (0-4) Urine Squamous Epithelial Cells Many /LPF Urine Bacteria Few /HPF (0-FEW) Urine Mucus Marked /LPF POC Urine HCG, Qualitative Hcg negative (Negative) Glucose (Fingerstick) 73 mg/dL (70-99) EKG EKG [] Radiology/Procedures Radiology/Procedures [] Course & Med Decision Making Course & Med Decision Making Pertinent Labs and Imaging studies reviewed. (See chart for details) This is a 33-year-old female patient who presents to the ED today with multiple complaints, patient has an IUD and she is complaining she feels she is . She has done multiple tests which are negative. Urine hCG here is negative. See history of present illness for further information. She was also complaining of high blood pressure. Her blood pressure in the ED has been as low as 123/70s. 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 Encouraged to follow-up Lida Disclaimer Dragon Disclaimer This electronic medical record was generated, in whole or in part, using a voice recognition dictation system. Departure Departure Impression: Primary Impression: Encounter for test Additional Impression: Blood pressure check Disposition: HOME, SELF-CARE Condition: STABLE Referrals: Monique ROCA MD (PCP) follow up in one week Patient Instructions: Hypertension Additional Instructions: Your test in the emergency room is negative. We highly recommend you follow-up with your primary care doctor as well as your CLOSET BUILDER. Your blood pressure was normal in the emergency room. Your blood sugar was also normal. Problem Qualifiers Primary Impression: Encounter for test test result: negative Qualified Codes: Z32.02 - Encounter for test, result negative MALIK AMADOR APRN Jan 09, 2019 19:13
== END 2019-01-09 19:23 | disposition home or self-care (01) ==
LOC: ER 16:38
DX: Z32.02 Encounter for pregnancy test, result negative (principal); I10 Essential (primary) hypertension; K21.9 Gastro-esophageal reflux disease without esophagitis; F32.9 Major depressive disorder, single episode, unspecified; Z98.890 Other specified postprocedural states
CPT/HCPCS: 81001; 81025; 82962; 99283; 99284

== ENCOUNTER → 2019-02-27 | Outpatient (CLI) | payer MEDICARE, OTHER ==
[2019-02-27 15:44] LABS: BASO # 0.1 x10^3/uL (0.0-0.2); BASO % 1 % (0-3); EOS # 0.1 x10^3/uL (0.0-0.7); EOS % 1 % (0-3); HEMATOCRIT 37.8 % (36.0-47.0); HEMOGLOBIN 12.7 g/dL (12.0-15.5); LYMPH # 2.4 x10^3/uL (1.0-4.8); LYMPH % 47 % (24-48); MEAN CORPUSCULAR HEMOGLOBIN 30 pg (25-35); MEAN CORPUSCULAR HGB CONC 34 g/dL (31-37); MEAN CORPUSCULAR VOLUME 89 fL (79-100); MONO # 0.3 x10^3/uL (0.0-1.1); MONO % 6 % (0-9); NEUT # 2.3 x10^3/uL (1.8-7.7); NEUT % 45 % (31-73); PLATELET COUNT 249 x10^3/uL (140-400); RED BLOOD COUNT 4.27 x10^6/uL (3.50-5.40); RED CELL DISTRIBUTION WIDTH 13.7 % (11.5-14.5); WHITE BLOOD COUNT 5.1 x10^3/uL (4.0-11.0)
[2019-02-27 15:46] LABS: BARBITURATES NEG (NEG); BENZODIAZEPINES NEG (NEG); CANNABINOIDS NEG (NEG); COCAINE NEG (NEG); METHADONE NEG (NEG); OPIATES NEG (NEG); PHENCYCLIDINE NEG (NEG)
[2019-02-27 15:47] LABS: AMPHETAMINE/METHAMPHETAMINE NEG (NEG)
[2019-02-27 16:11] LABS: ALBUMIN 3.6 g/dL (3.4-5.0); ALBUMIN/GLOBULIN RATIO 0.9 (1.0-1.7); CALCIUM 8.6 mg/dL (8.5-10.1); GFR 76.8; TOTAL BILIRUBIN 0.8 mg/dL (0.2-1.0); TOTAL PROTEIN 7.5 g/dL (6.4-8.2)
[2019-02-27 16:12] LABS: POTASSIUM 3.3 mmol/L (3.5-5.1)
== END | disposition home or self-care (01) ==
LOC: LAB 15:18
PROVIDERS: ATTEND Psychiatry & Neurology Neurology
DX: G93.2 Benign intracranial hypertension (principal); F17.210 Nicotine dependence, cigarettes, uncomplicated; I10 Essential (primary) hypertension; K59.00 Constipation, unspecified; K21.9 Gastro-esophageal reflux disease without esophagitis; G89.29 Other chronic pain; Z98.890 Other specified postprocedural states; Z79.899 Other long term (current) drug therapy
CPT/HCPCS: 36415; 80053; 80307; 85025; 85651

== ENCOUNTER → 2019-03-12 | Outpatient (CLI) | payer MEDICARE, OTHER ==
[~2019-03-12] MED LIST changes: +GADOTERATE 7.5 MMOL/15ML VIAL. IVP ONE
--- NOTE | 2019-03-12 12:21 | RAD ---
MRI Brain with and without contrast History: Chronic headaches getting worse Technique: Multiplanar, multi sequential pre and postcontrast MR imaging was performed of the brain. Comparison: None Findings: There is no evidence of recent infarct or cytotoxic edema. The ventricles, sulci, and cisterns are within normal limits in size and configuration. There is no significant midline shift, intraaxial mass effect, or focal abnormal extra-axial fluid collection. There is no significant signal abnormality of the brain parenchyma. There is no nodular parenchymal or leptomeningeal enhancement. There is small caliber of the visualized intradural vertebral artery flow-void and somewhat diminutive basilar artery as more commonly associated with presence of prominent posterior communicating arteries, vasculature not accurately evaluated. Cerebellar tonsils are normal in location. There is no significant abnormality of the pineal gland. There are large right maxillary sinus mucous retention cysts, largest about 2.7 cm. There is mucous retention cyst of the pterygoid aspect of the left sphenoid sinus about 1.9 cm. There is somewhat disconjugate gaze. Pituitary gland is small. The mastoid air cells are aerated. There is preserved marrow signal of the clivus. Impression: 1. Small pituitary gland may be incidental, no significant increased CSF signal of the optic nerve sheaths as would be more commonly associated with intracranial hypertension. 2. There are paranasal sinus mucous retention cysts as stated. 3. There is nonspecific somewhat disconjugate gaze. Electronically signed by: Osvaldo Manzo MD (03/12/2019 12:18 PM) [id number]
== END ==
LOC: MRI 09:01
PROVIDERS: ATTEND Psychiatry & Neurology Neurology
DX: G93.2 Benign intracranial hypertension (principal); J34.1 Cyst and mucocele of nose and nasal sinus
CPT/HCPCS: 70553; A9575

== ENCOUNTER 2019-03-26 10:50 | Emergency (ER) | payer MEDICARE, OTHER ==
[~2019-03-26] VITALS: Ht 162.6 cm; Wt 91.2 kg
[~2019-03-26 10:50] MED LIST changes: -GADOTERATE 7.5 MMOL/15ML VIAL. IVP ONE
[2019-03-26 11:10] VITALS: BP 159/103
[2019-03-26] MEDS ORDERED: KETOROLAC TROMETHAMINE 10 MG TABLET PO STA (11:26)
[2019-03-26] MEDS ORDERED: NAPR500T8 PO (11:35)
--- NOTE | 2019-03-26 11:35 | PHYS DOC ---
Past Medical History Past Medical History: Depression, Hypertension Additional Past Medical Histor: Acid Reflux Past Surgical History: Alcohol Use: None Drug Use: None Adult General Chief Complaint Chief Complaint: FOOT INJURY PAIN HPI HPI Patient is a 33 year old female who presents with bilateral pedal edema and left great toe pain has been ongoing since re-days ago. She states that she just started a new job the last several weeks and is on her feet a lot. Her pain is 1 out of 10 in severity when she sitting. However it jumped up when she is tone ding. She states that she's been putting ice on it at home. Denies trauma. Review of Systems Review of Systems Constitutional: Denies fever or chills [] Eyes: Denies change in visual acuity, redness, or eye pain [] HENT: Denies nasal congestion or sore throat [] Respiratory: Denies cough or shortness of breath [] Cardiovascular: No additional information not addressed in HPI [] GI: Denies abdominal pain, nausea, vomiting, bloody stools or diarrhea [] : Denies dysuria or hematuria [] Musculoskeletal: Reports bilateral foot pain. Integument: Denies rash or skin lesions [] Neurologic: Denies headache, focal weakness or sensory changes [] Endocrine: Denies polyuria or polydipsia [] Complete systems were reviewed and found to be within normal limits, except as documented in this note. Allergies Allergies Allergies Coded Allergies Type Severity Reaction Last Updated Verified No Known Drug Allergies 10/21/16 No Physical Exam Physical Exam Constitutional: Well developed, well nourished, no acute distress, non-toxic appearance. [] HENT: Normocephalic, atraumatic, bilateral external ears normal, oropharynx moist, no oral exudates, nose normal. [] Eyes: PERRLA, EOMI, conjunctiva normal, no discharge. Neck: Normal range of motion, no tenderness, supple, no stridor. [] Cardiovascular:Heart rate regular rhythm, no murmur [] Lungs & Thorax: Bilateral breath sounds clear to auscultation [] Abdomen: Bowel sounds normal, soft, no tenderness, no masses, no pulsatile masses. [] Skin: Warm, dry, no erythema, no rash. [] Back: No tenderness, no CVA tenderness. [] Extremities: mild Tenderness to left great toe, no erythema, no cyanosis, no clubbing, ROM intact, mild edema that is equal bilaterally. [] Neurologic: Alert and oriented X 3, normal motor function, normal sensory function, no focal deficits noted. [] Psychologic: Affect normal, judgement normal, mood normal. [] Current Patient Data Vital Signs Vital Signs Date Time Temp Pulse Resp B/P (MAP) Pulse Ox O2 Delivery O2 Flow Rate FiO2 03/26/19 11:10 98.7 54 16 159/103 (121) 99 98.7 EKG EKG [] Radiology/Procedures Radiology/Procedures [] Course & Med Decision Making Course & Med Decision Making Pertinent Labs and Imaging studies reviewed. (See chart for details) Appears to be swelling related to her new job and being on her feet. Will place on Naproxen, and will give Toradol in ER. Will recommend RICE and compression stockings. Dragon Disclaimer Dragon Disclaimer This electronic medical record was generated, in whole or in part, using a voice recognition dictation system. Departure Departure Impression: Primary Impression: Edema of both feet Disposition: HOME, SELF-CARE Condition: STABLE Referrals: Monique ROCA MD (PCP) Patient Instructions: RICE - Routine Care for Injuries Additional Instructions: Thank you for visiting [facility]. We appreciate you trusting us with your care. If any additional problems come up don't hesitate to return to visit us. Please follow up with your primary care provider so they can plan additional care if needed and know about the problem that you had. If symptoms worsen come back to the Emergency Department. Any concerning symptoms that start such as chest pain, shortness of air, weakness or numbness on one side of the body, running high fevers or any other concerning symptoms return to the ER. Please obtain compression stocking and start wearing them at work. Elevate feet at home. Scripts Naproxen (NAPROXEN) 500 Mg Tablet. 1 TAB PO BID for 14 Days, #28 TAB Prov: JUAN CARLOS MAYFILED APRN 03/26/19 JUAN CARLOS MAYFIELD APRN Mar 26, 2019 11:35
== END 2019-03-26 11:40 | disposition home or self-care (01) ==
LOC: ER 10:50
DX: R60.0 Localized edema (principal); M79.675 Pain in left toe(s); M79.671 Pain in right foot; I10 Essential (primary) hypertension; F32.9 Major depressive disorder, single episode, unspecified; X50.9XXA Other and unspecified overexertion or strenuous movements or postures, initial encounter; Y93.89 Activity, other specified; Y92.89 Other specified places as the place of occurrence of the external cause; Y99.8 Other external cause status
CPT/HCPCS: 99282